=== PATIENT | female | born 1955 | race Caucasian/White ===

== ENCOUNTER → 2016-10-04 | Outpatient (CLI) | payer OTHER ==
--- NOTE | 2016-10-04 12:46 | MAMMOGRAPHY REPORT ---
BILATERAL DIGITAL SCREENING MAMMOGRAM TOMOSYNTHESIS WITH CAD: 10/04/2016 CLINICAL HISTORY: Routine screening. Patient has no complaints. TECHNIQUE: Breast tomosynthesis in addition to standard 2D mammography was performed. Current study was also evaluated with a Computer Aided Detection (CAD) system. COMPARISON: Comparison is made to exams dated: 10/02/2015 mammogram, 04/30/2013 mammogram, and 09/27/20 14 mammogram - [facility]. BREAST COMPOSITION: The tissue of both breasts is heterogeneously dense, which may obscure small ma sses. FINDINGS: No suspicious masses, calcifications, or areas of architectural distortion are noted in e ither breast. There has been no significant interval change compared to prior exams. IMPRESSION: ACR BI-RADS CATEGORY 1: NEGATIVE There is no mammographic evidence of malignancy. A 1 year screening mammogram is recommended. The p atient will receive written notification of the results. Approximately 10% of breast cancers are not detected with mammography. A negative mammographic repor t should not delay biopsy if a clinically suggestive mass is present. Brittnee Troy M.D. ah/:10/04/2016 12:33:35 Hand Crown Pouncer: Wandy Alvarez RT(R)(M), [facility] letter sent: Normal 1/2 BI-RADS Code: ACR BI-RADS Category 1: Negative
== END | disposition home or self-care (01) ==
LOC: C.MAMM 09:19
PROVIDERS: ATTEND Obstetrics & Gynecology
DX: Z12.31 Encounter for screening mammogram for malignant neoplasm of breast (principal)

== ENCOUNTER → 2016-12-17 | Outpatient (CLI) | payer OTHER ==
[2016-12-17 17:36] LABS: BASO % 0.4 %; BASO ABS # 0.03 K/uL (0-0.2); COMPLETE YES; EOS % 0.7 %; HEMATOCRIT 40.6 % (37-47); IG% 0.3 %; LYMPH % 26.1 %; LYMPH ABS # 1.78 K/uL (1.2-3.4); MEAN CORPUSCULAR HGB CONC 34.5 g/dl (32-36); MONO % 7.3 %; NEUT % 65.2 %; PLATELET COUNT 341 K/uL (130-400); RED BLOOD COUNT 4.51 M/uL (4.2-5.4); WHITE BLOOD COUNT 6.82 K/uL (4.8-10.8)
[2016-12-17 17:44] LABS: BLOOD UREA NITROGEN 23 mg/dl (7-18); BUN/CREATININE RATIO 25.6 (10-20); CALCIUM 9.5 mg/dl (8.5-10.1); CARBON DIOXIDE 30 mmol/L (21-32); CHLORIDE 104 mmol/L (98-107); CREATININE 0.91 mg/dl (0.60-1.20); GLUCOSE 101 mg/dl (70-99); POTASSIUM 3.9 mmol/L (3.5-5.1); SODIUM 140 mmol/L (136-145)
== END | disposition home or self-care (01) ==
LOC: C.LABPVFM 16:01
PROVIDERS: ATTEND Nurse Practitioner
DX: R07.89 Other chest pain (principal); R53.83 Other fatigue

== ENCOUNTER → 2017-01-16 | Outpatient (CLI) | payer OTHER ==
[2017-01-16 12:14] LABS: BLOOD UREA NITROGEN 20 mg/dl (7-18); BUN/CREATININE RATIO 22.4 (10-20); CARBON DIOXIDE 30 mmol/L (21-32); CHLORIDE 105 mmol/L (98-107); CHOLESTEROL 182 mg/dl (0-200); CREATININE 0.88 mg/dl (0.60-1.20); GLUCOSE 120 mg/dl (70-99); POTASSIUM 4.1 mmol/L (3.5-5.1); SODIUM 140 mmol/L (136-145); TRIGLYCERIDES 102 mg/dl (0-150); VERY LOW DENSITY LIPOPROT CALC 20 mg/dl
[2017-01-16 12:15] LABS: CALCIUM 9.7 mg/dl (8.5-10.1)
[2017-01-16 12:18] LABS: CHOLESTEROL/HDL RATIO 4.1; HDL CHOLESTEROL 44 mg/dl; LDL CHOLESTEROL CALCULATED 118 mg/dl
[2017-01-16 12:46] LABS: ESTIMATED AVERAGE GLUCOSE 114 mg/dl; HA1C FLAG Normal (Normal)
== END | disposition home or self-care (01) ==
LOC: C.LABPVFM 08:09
PROVIDERS: ATTEND Family Medicine
DX: R73.01 Impaired fasting glucose (principal); I10 Essential (primary) hypertension; E78.5 Hyperlipidemia, unspecified

== ENCOUNTER → 2017-02-13 | Outpatient (CLI) | payer OTHER | END | disposition home or self-care (01) | LOC: C.MAMM 09:20 | PROVIDERS: ATTEND Family Medicine | DX: Z78.0 Asymptomatic menopausal state (principal); M85.88 Other specified disorders of bone density and structure, other site ==

== ENCOUNTER → 2017-10-07 | Outpatient (CLI) | payer OTHER ==
--- NOTE | 2017-10-07 14:28 | MAMMOGRAPHY REPORT ---
BILATERAL DIGITAL SCREENING MAMMOGRAM TOMOSYNTHESIS WITH CAD: 10/07/2017 CLINICAL HISTORY: Routine screening. Patient has no complaints. TECHNIQUE: Breast tomosynthesis in addition to standard 2D mammography was performed. Current study was also evaluated with a Computer Aided Detection (CAD) system. COMPARISON: Comparison is made to exams dated: 10/04/2016 mammogram, 10/02/2015 mammogram, 09/27/2014 ma mmogram, 04/30/2013 mammogram - [facility], 04/11/2009, and 01/15/2007. BREAST COMPOSITION: The tissue of both breasts is heterogeneously dense, which may obscure small mas ses. FINDINGS: The glandular pattern is similar to prior mammograms. No new suspicious mass, architectura l distortion or cluster of microcalcifications is seen. IMPRESSION: ACR BI-RADS CATEGORY 1: NEGATIVE There is no mammographic evidence of malignancy. A 1 year screening mammogram is recommended. The pa tient will receive written notification of the results. Approximately 10% of breast cancers are not detected with mammography. A negative mammographic report should not delay biopsy if a clinically suggestive mass is present. Iram De León M.D. ay/:10/07/2017 12:27:05 Power Line Installer And Repairer: Wandy HOWARD(Nayan)(M), [facility] letter sent: Normal 1/2 BI-RADS Code: ACR BI-RADS Category 1: Negative
== END | disposition home or self-care (01) ==
LOC: C.MAMM 09:15
PROVIDERS: ATTEND Obstetrics & Gynecology
DX: Z12.31 Encounter for screening mammogram for malignant neoplasm of breast (principal)

== ENCOUNTER 2019-11-30 14:26 | Observation (INO) ==
[2019-11-30 15:45] LABS: Basophils # (auto) 0.03 K/uL (0-0.2); Basophils % (auto) 0.5 %; Eosinophils # (auto) 0.02 K/uL (0-0.5); Eosinophils % (auto) 0.3 %; Hemoglobin 14.2 g/dL (12.0-16.0); Immature Granulocytes # (auto) 0.02 K/uL (0.00-0.02); Immature Granulocytes % (auto) 0.3 %; Lymphocytes # (auto) 1.32 K/uL (1.2-3.4); Lymphocytes % (auto) 21.2 %; Mean Corpuscular Hemoglobin 30.9 pg (25-34); Mean Corpuscular Hgb Conc 34.6 g/dL (32-36); Mean Corpuscular Volume 89.1 fL (80-100); Mean Platelet Volume 9.5 fL (7.4-10.4); Monocytes # (auto) 0.35 K/uL (0.11-0.59); Monocytes % (auto) 5.6 %; Neutrophils % (auto) 72.1 %; Platelet Count 385 K/uL (130-400); RDW Coefficient of Variation 13.6 % (11.5-14.5); RDW Standard Deviation 44.4 fL (36.4-46.3); White Blood Count 6.24 K/uL (4.8-10.8)
[2019-11-30 15:54] LABS: Alanine Aminotransferase 31 U/L (12-78); Albumin Level 4.2 gm/dl (3.4-5.0); Aspartate Aminotransferase 19 U/L (15-37); BUN Creatinine Ratio 12.3 (10-20); Blood Urea Nitrogen 12 mg/dl (7-18); Calcium 9.4 mg/dl (8.5-10.1); Carbon Dioxide 25 mmol/L (21-32); Chloride 105 mmol/L (98-107); Creatinine Clr Calc Pharmacy 64.5 ml/min; Est GFR (African American) 70.8; Est GFR (Non-African American) 61.1; Glucose 134 mg/dl (70-99); Magnesium 2.1 mg/dl (1.8-2.4); Potassium 3.6 mmol/L (3.5-5.1); Sodium 137 mmol/L (136-145)
[2019-11-30] MEDS ORDERED: SODIUM CHLORIDE 0.9% 1000ML 1,000 ML IV ONE (15:55)
[2019-11-30 15:56] LABS: INR 1.1 (0.9-1.1); Partial Thromboplastin Ratio 0.9; Partial Thromboplastin Time 25.5 Seconds (21.0-31.0)
[2019-11-30 15:59] LABS: Albumin Globulin Ratio 1.1 (0.9-2); Alkaline Phosphatase 82 U/L (45-117); Bilirubin,Total 0.5 mg/dl (0.2-1); NT Pro B Type Natriuretic Pept 49 pg/ml (0-900); Total Protein 8.2 gm/dl (6.4-8.2); Troponin I < 0.015 ng/ml (0-0.045)
--- NOTE | 2019-11-30 16:00 | Emergency Department Note ---
ED Visit Note I assisted attending Dr. Astudillo in the care of this patient. Please see attending's note for details of the visit. Lory Pat MD Wiring Technician PGY-3 . Resident Activity Tracking Resident Involvement: Resident Care Provided Care Provided: Adult ED
[2019-11-30] MEDS ORDERED: OPTIRAY 320 125ml IV PRN (16:25)
--- NOTE | 2019-11-30 16:34 | CT Scan Report ---
CT angio chest PE protocol CT DOSE: 388.79 mGy.cm HISTORY: Chest pain. Dyspnea. PE TECHNIQUE: Multiaxial CT images of the chest were performed following the intravenous administration of contrast to evaluate the pulmonary arteries. Maximal intensity projection images were also obtaine d. A dose lowering technique was utilized adhering to the principles of ALARA. COMPARISON STUDY: 08/11/2013 FINDINGS: The thoracic aorta is normal in course and caliber. Evaluation of the pulmonary arterial va sculature shows a focal filling defect of the right lower lobe pulmonary arterial supply. This is bes t seen on transaxial image 37. Smaller third order peripheral filling defects of the right lower lobe are present. All remaining pulmonary arterial vasculature enhances appropriately. There is no evidence for a main or midline pulmonary embolus. There is no significant mediastinal or hilar adenopathy. Evaluation of the pulmonary lungs demonstrate the lungs to be clear. There are no focal infiltrative changes. There is no evidence for pneumothorax. IMPRESSION: 1. Study is positive for a pulmonary embolus involving the distal right lower lobe pulmonary artery. 2. No evidence for a main or central pulmonary embolus. 3. Lungs are clear. 4. Unchanged hyperplastic changes left adrenal as compared to the prior study. ACT 112: Negative or not required by law. The above report was generated using voice recognition software. It may contain grammatical, syntax or spelling errors. Electronically signed by: Chase Rodriguez M.D. 11/30/2019 4:33 PM
--- NOTE | 2019-11-30 16:44 | Electrocardiogram Report ---
Test Reason : Blood Pressure : / mmHG Vent. Rate : 112 BPM Atrial Rate : 112 BPM P-R Int : 160 ms QRS Dur : 092 ms QT Int : 322 ms P-R-T Axes : 049 025 051 degrees QTc Int : 439 ms Sinus tachycardia Otherwise normal ECG When compared with ECG of 11-AUG-2013 13:08, No significant change was found Confirmed by Shahid Stout ([id number]) on 11/30/2019 4:44:34 PM Referred By: Confirmed By:Shahid Stout
[2019-11-30 16:53] LABS: Influenza A virus by PCR Neg for Influ A (Neg); Influenza B virus by PCR Neg for Influ B (Neg)
[2019-11-30] MEDS ORDERED: Heparin BOLUS **ED Use Only IV ONE (18:00)
[2019-11-30] MEDS: HEPARIN SODIUM/DEXTROSE 25,000 UNITS/500 ML BAG IV SCH (18:10)
--- NOTE | 2019-11-30 18:25 | History & Physical Report ---
Date of Service November 30, 2019 Assessment & Plan (1) Pulmonary embolus: Admit to PCU on telemetry for observation, Vital signs every 4 hours, Started heparin drip for pulmonary embolus, Switched to Eliquis tomorrow 10 mg p.o. twice daily for 7 days, and continue 5 mg p.o. twice daily for the rest. Hypercoagulable study pending a except for Antithrombin 3 because patient is on heparin drip. Please refer patient to hematology oncology because it is not clear if this embolism is provoked or unprovoked. That would determine length of anticoagulation that patient should take. DVT prophylaxis as above. Full code Present on Admission?: Yes (2) Tachycardia: As discussed above it is a symptom of pulmonary embolism and DVT. Present on Admission?: Yes (3) Prediabetes: Hemoglobin A1c pending. Last year hemoglobin A1c in November was 5.7 meaning that patient is prediabetic. She was advised to lose weight at least 15 pounds which would improve her glycemic control. Patient is not on any kind of glycemic agents at this time. Present on Admission?: Yes (4) Obesity: As discussed above lifestyle changes exercises and diet would significantly help to prevent development of other comorbidities. Present on Admission?: Yes History of Present Illness Chief Complaint: Palpitations, worsening shortness of breath Primary Care Provider: Carmelina Randall MD The patient is a 63 years old female with pre-diabetes and without other significant past medical history who presented with tachycardia for 3 months and shortness of breath. Patient states that 3 months ago she was traveling in the car with her to [place] and she approximately spent around 6 hours in the car. Patient denies use of contraceptive pills any kind of hormones and she is not smoker. Patient denies long travel except for this 1 3 months ago and she denies any family history of blood clotting. Patient is non-smoker. Patient denies fever, chills, chest pain, abdominal pain, frequency, urgency. Labs are reviewed: Sodium 137, potassium 3.6, chloride 105, carbon dioxide 25, anion gap 7, BUN 12, creatinine 0.99 GFR 61.1, BUN 12.3, glucose 134, hemoglobin A1c 5.7 was in November 2018 magnesium 2.1, total bilirubin 0.5, AST 19, ALT 31, alkaline phosphatase 82, troponin 0.015, BNP 49, total protein 8.2, albumin 4.2, globulin 4. Patient also had elevated cholesterol of 232 in November 2018 and borderline LDL. Negative for influenza a and B. DVT of the lower extremity shows nonocclusive thrombus within the mid left popliteal vein. This is likely chronic. CTA of the chest: Study is positive for a pulmonary embolus involving the distal right lower lobe pulmonary artery. No evidence of a main or central pulmonary embolus. Lungs are clear. Unchanged hyperplastic changes left adrenal as compared to the prior study. The decision was made to admit patient to PCU on telemetry for observation for pulmonary embolism and nonocclusive thrombus in her left popliteal vein. Allergies Allergy/AdvReac Type Severity Reaction Status Date / Time No Known Allergies Allergy Unverified 11/30/19 17:50 Home Medications Home Medications Medication Instructions Recorded Confirmed Type metoprolol succinate 25 mg 12.5 mg PO DAILY #30 tab 11/30/19 11/30/19 Rx tablet,extended release 24 hr naproxen sodium [Aleve] 220 mg PO BID PRN 11/30/19 11/30/19 History Past Med/Surg History Medical History Diabetes (Chronic) Tachycardia Surgical History No pertinent past surgical history Family History Grandmother (Maternal) Myocardial infarction Uncle Myocardial infarction Mother Afib Denies family history of Ovarian cancer Prostate cancer Breast cancer Colorectal cancer Social History marital status: Current Living Situation: Spouse current occupational status: retired Feels Safe at Home: Yes Smoking Status: Never smoker Number of Years Since Quit: 9 ; Hx Alcohol Use: No Hx Substance Use: No Dental Care, Regularly: Yes Seatbelt Use: always Sunscreen Use: Yes Review of Systems Review of Systems: All systems reviewed & are unremarkable except as noted in HPI & below Physical Exam Constitutional: WD/WN, vitals as above well developed Eyes: PERRL, conjunctivae normal, anicteric sclerae ENMT: external ear and nose normal, oropharynx normal Neck: trachea midline, no thyromegaly Respiratory: normal respiratory effort, lungs clear to auscultation Cardiovascular: Rate/Rhythm: regular rate, regular rhythm and + tachycardic Heart Sounds: normal S1 and normal S2 Vessels: dorsalis pedis pulses present Gastrointestinal (Abdomen): normal bowel sounds, soft, nontender, no hepatosplenomegaly Musculoskeletal: no cyanosis or clubbing, extremities motor strength 5/5 Skin: no rashes, warm and dry Neurologic: patellar DTR's 2+ bilat, sensation intact Psychiatric: A+Ox3, euthymic affect Lymphatic: no cervical or axillary lymphadenopathy Results & Data Vital Signs (Past 12 Hours) Vital Signs Temp Pulse Resp BP Pulse Ox 11/30/19 16:39 106 H 18 152/98 H 98 11/30/19 16:00 97 H 18 140/83 96 11/30/19 15:30 105 H 12 138/87 97 11/30/19 14:39 37.4 C 132 H 16 157/100 H 98 Code Status & VTE Plan Code Status Full code VTE Prophylaxis Plan VTE Prophylaxis will be ordered: Yes PG Care Time/CCT Total # of Minutes Spent Total Time Spent with Patient: Total time spent is greater than 50% in coordination of care (as documented) at patient's floor/unit and/or counseling patient: Coding Level of Care Code 74835 Initial Inpt Care Lvl 3 Diagnoses Pulmonary embolus I26.99 Acute cor pulmonale presence: unspecified Chronicity: unspecified Pulmonary embolism type: unspecified Tachycardia R00.0 Prediabetes R73.03 Obesity E66.9 (1) Pulmonary embolus Acute cor pulmonale presence: unspecified Chronicity: unspecified Pulmonary embolism type: unspecified Qualified Code(s): I26.99 - Other pulmonary embolism without acute cor pulmonale
[2019-11-30] MEDS ORDERED: MAGNESIUM HYDROXIDE SUSP 30 ML UDC PO PRN (19:39)
[2019-11-30] MEDS ORDERED: ACETAMINOPHEN 325 MG TAB PO PRN (19:39)
[2019-11-30] MEDS ORDERED: ALUMINUM/MAGNESIUM SUSP 30 ML UDC PO PRN (19:39)
--- NOTE | 2019-11-30 20:49 | Emergency Department Note ---
Entered by Carmen Tucker acting as a scribe for History of Present Illness General Chief complaint: Tachycardia Stated complaint: HIGH HEART RT - DR REF Time Seen by Provider: 11/30/19 15:33 Source: patient History of Present Illness Provider complaint: Leg Injury/Pain Onset (ago): day(s) 1 Location: lower extremity and right Maximum Pain Intensity: 0 Relieved By: + none Exacerbated By: + none Associated symptoms: + weakness; no cough and no shortness of breath The patient is a 63 year old female w/ PMHx of diabetes and tachycardia who presents to the ED w/ CC of lower extremity pain beginning yesterday. The patient states that she was sick about 4 weeks ago and treated with Amoxicillin. The patient states that yesterday she began to notice tightness in her right lower extremity and saw her PCP today and an ultrasound revealed a non-inclusive thrombosis in her right lower extremity. The patient states that her symptoms are not relieved nor exacerbated by anything specific. The patient reports experiencing weakness but denies any shortness of breath or cough. Home Medications Home Medications Medication Instructions Recorded Confirmed Type metoprolol succinate 25 mg 12.5 mg PO DAILY #30 tab 11/30/19 11/30/19 Rx tablet,extended release 24 hr naproxen sodium [Aleve] 220 mg PO BID PRN 11/30/19 11/30/19 History Allergies Allergy/AdvReac Type Severity Reaction Status Date / Time No Known Allergies Allergy Unverified 11/30/19 17:50 Past Med/Surg History Medical History Diabetes (Chronic) Tachycardia Surgical History No pertinent past surgical history Family History Grandmother (Maternal) Myocardial infarction Uncle Myocardial infarction Mother Afib Denies family history of Ovarian cancer Prostate cancer Breast cancer Colorectal cancer Social History marital status: Current Living Situation: Spouse current occupational status: retired Feels Safe at Home: Yes Smoking Status: Never smoker Number of Years Since Quit: 9 ; Hx Alcohol Use: No Hx Substance Use: No Dental Care, Regularly: Yes Seatbelt Use: always Sunscreen Use: Yes Review of Systems See HPI for pertinent positives & negatives. and A total of 10 systems reviewed and were otherwise negative Physical Exam Vital Signs Vital Signs - 24 hr 11/30/19 14:39 11/30/19 15:15 11/30/19 15:30 Temperature 37.4 C Temperature Source Oral Pulse Rate 132 H 105 H Pulse Rate from SpO2 Sensor 105 H Respiratory Rate 16 12 Respiratory Effort / Characteristics Non-Labored Spontaneous Respiratory Depth Normal Respiratory Pattern Regular Blood Pressure 157/100 H 138/87 Blood Pressure Mean 119 104 Blood Pressure Position Sitting Pulse Oximetry 98 97 Oxygen Delivery Method Room Air Room Air Room Air Sepsis Recent Fever Within 48 Hours No Sepsis New/Unexplained Change in Mental Status No Sepsis Action Taken by Nursing No Action Required 11/30/19 16:00 11/30/19 16:39 11/30/19 17:00 Temperature Temperature Source Pulse Rate 97 H 106 H 97 H Pulse Rate from SpO2 Sensor 98 H 107 H 97 H Respiratory Rate 18 18 11 L Respiratory Effort / Characteristics Respiratory Depth Respiratory Pattern Blood Pressure 140/83 152/98 H 137/86 Blood Pressure Mean 95 119 98 Blood Pressure Position Pulse Oximetry 96 98 99 Oxygen Delivery Method Room Air Room Air Room Air Sepsis Recent Fever Within 48 Hours Sepsis New/Unexplained Change in Mental Status Sepsis Action Taken by Nursing 11/30/19 17:30 11/30/19 18:00 Temperature Temperature Source Pulse Rate 108 H 107 H Pulse Rate from SpO2 Sensor 108 H 108 H Respiratory Rate 18 20 Respiratory Effort / Characteristics Respiratory Depth Respiratory Pattern Blood Pressure 153/92 H 151/104 H Blood Pressure Mean 105 130 Blood Pressure Position Pulse Oximetry 98 96 Oxygen Delivery Method Room Air Room Air Sepsis Recent Fever Within 48 Hours Sepsis New/Unexplained Change in Mental Status Sepsis Action Taken by Nursing GENERAL: Well appearing, well nourished, NAD, non-toxic, wearing glasses. EYE EXAM: Normal conjunctiva. PERRL, no anisocoria and EOM's grossly intact w/o pain. OROPHARYNX: Moist mucous membranes. Grossly normal dentition. NECK: Supple, no nuchal rigidity, no adenopathy, non-tender. No signs of meningismus. LUNGS: Clear to auscultation. Normal chest wall mechanics. HEART: Tachycardic rate and regular rhythm, no MRG. ABDOMEN: Abdomen soft, non-tender, normo-active bowel sounds, no masses, no rebound or guarding. BACK: No CVA TTP. SKIN: No rashes and no bruising. UPPER EXTREMITIES: Upper extremities are grossly normal. LOWER EXTREMITIES: No pitting edema. No calf pain. Negative Geovanna's sign. NEURO EXAM: A&O x3, cranial nerves II-XII grossly intact, normal speech, moves all 4 extremities on command w/o issue. Course Course 1534: Past medical records reviewed. The patient was seen and evaluated by the Resident Physician in room A12B at this time. History and physical were discussed with me. 1634: Physical exam performed by me. 1753: I spoke with Dr. Gregg- Hospitalist about the patient's case and she will accept the patient for further evaluation. Administered Medications Heparin Sodium/Dextrose (Heparin Sodium/Dextrose) 25,000 units in 500 mls @ 25 mls/hr IV .Q20H [facility]; Protocol Stop: 12/30/19 17:29 Last Admin: 11/30/19 18:10 Dose: 1,250 units/hr, 25 mls/hr Documented by: [id number] Cosigned by: [id number] Discontinued Medications Heparin Sodium (Porcine) (Heparin Iv Bolus) 6,000 units IV ONE ONE Stop: 11/30/19 18:01 Last Admin: 11/30/19 18:10 Dose: 6,000 units Documented by: [id number] Cosigned by: [id number] Heparin Sodium/Dextrose () 1 ea IV NOW [facility]; Protocol Stop: 11/30/19 17:21 Last Admin: 11/30/19 18:13 Dose: Not Given Documented by: [id number] Sodium Chloride (Nss 1000ml) 1,000 mls @ 999 mls/hr IV .Q1H1M ONE Stop: 11/30/19 16:55 Last Infusion: 11/30/19 17:35 Dose: 0 mls/hr Documented by: [id number] Admin: 11/30/19 16:10 Dose: 999 mls/hr Documented by: [id number] Ioversol (Optiray 320 125ml) 83 ml IV ONCE PRN PRN Reason: Interaction Checking Stop: 12/04/19 16:24 Last Admin: 11/30/19 16:25 Dose: 83 ml Documented by: [id number] Critical Care Time Critical Care Time: Yes Total Critical Care Time: 52 I have personally spent 52 minutes of critical care time in direct management of this patient. This includes bedside care, interpretation of diagnostic studies, and testing, discussion with consultants, patient, and family members, and other require inpatient management activities. This 52 minutes is in excess of all separately billable procedures. Medical Decision Making Differential Diagnosis Differential Diagnosis includes but is not limited to dehydration, stroke, anemia, hypoglycemia, hyponatremia, hypernatremia, urinary tract infection, pneumonia, bronchitis, sepsis, gastroenteritis, additional abdominal pathology, metabolic abnormalities and infections. Medical Records Attestation: I reviewed the patient's medical records. Home Medications Current Medication List: was personally reviewed by me Laboratory Data Attestation: I reviewed the patient's lab results. Result diagrams: 11/30/19 15:15 11/30/19 15:15 Lab Results 11/30/19 11/30/19 11/30/19 Range/Units 15:15 15:15 15:15 WBC 6.24 (4.8-10.8) K/uL RBC 4.60 (4.2-5.4) M/uL Hgb 14.2 (12.0-16.0) g/dL Hct 41.0 (37-47) % MCV 89.1 (80-100) fL MCH 30.9 (25-34) pg MCHC 34.6 (32-36) g/dL RDW Std Deviation 44.4 (36.4-46.3) fL RDW Coeff of Forrest 13.6 (11.5-14.5) % Plt Count 385 (130-400) K/uL MPV 9.5 (7.4-10.4) fL Immature Gran % (Auto) 0.3 % Neut % (Auto) 72.1 % Lymph % (Auto) 21.2 % Major % (Auto) 5.6 % Eos % (Auto) 0.3 % Baso % (Auto) 0.5 % Immature Gran # (Auto) 0.02 (0.00-0.02) K/uL Neut # (Auto) 4.50 (1.4-6.5) K/uL Lymph # (Auto) 1.32 (1.2-3.4) K/uL Major # (Auto) 0.35 (0.11-0.59) K/uL Eos # (Auto) 0.02 (0-0.5) K/uL Baso # (Auto) 0.03 (0-0.2) K/uL PT 11.0 (9.0-12.0) Seconds INR 1.1 (0.9-1.1) APTT 25.5 (21.0-31.0) Seconds PTT Ratio 0.9 Sodium 137 (136-145) mmol/L Potassium 3.6 (3.5-5.1) mmol/L Chloride 105 (98-107) mmol/L Carbon Dioxide 25 (21-32) mmol/L Anion Gap 7.0 (3-11) BUN 12 (7-18) mg/dl Creatinine 0.99 (0.6-1.2) mg/dl Est Cr Clr Drug Dosing 64.5 ml/min Est GFR ( Amer) 70.8 Est GFR (Non-Af Amer) 61.1 BUN/Creatinine Ratio 12.3 (10-20) Glucose 134 H (70-99) mg/dl Calcium 9.4 (8.5-10.1) mg/dl Magnesium 2.1 (1.8-2.4) mg/dl Total Bilirubin 0.5 (0.2-1) mg/dl AST 19 (15-37) U/L ALT 31 (12-78) U/L Alkaline Phosphatase 82 (45-117) U/L Troponin I < 0.015 (0-0.045) ng/ml NT-Pro-B Natriuret Pep 49 (0-900) pg/ml Total Protein 8.2 (6.4-8.2) gm/dl Albumin 4.2 (3.4-5.0) gm/dl Globulin 4.0 (2.5-4.0) gm/dl Albumin/Globulin Ratio 1.1 (0.9-2) TSH (0.300-4.500) uIu/ml Influenza Type A (PCR) (Neg) Influenza Type B (PCR) (Neg) 11/30/19 11/30/19 Range/Units 15:15 16:05 WBC (4.8-10.8) K/uL RBC (4.2-5.4) M/uL Hgb (12.0-16.0) g/dL Hct (37-47) % MCV (80-100) fL MCH (25-34) pg MCHC (32-36) g/dL RDW Std Deviation (36.4-46.3) fL RDW Coeff of Forrest (11.5-14.5) % Plt Count (130-400) K/uL MPV (7.4-10.4) fL Immature Gran % (Auto) % Neut % (Auto) % Lymph % (Auto) % Major % (Auto) % Eos % (Auto) % Baso % (Auto) % Immature Gran # (Auto) (0.00-0.02) K/uL Neut # (Auto) (1.4-6.5) K/uL Lymph # (Auto) (1.2-3.4) K/uL Major # (Auto) (0.11-0.59) K/uL Eos # (Auto) (0-0.5) K/uL Baso # (Auto) (0-0.2) K/uL PT (9.0-12.0) Seconds INR (0.9-1.1) APTT (21.0-31.0) Seconds PTT Ratio Sodium (136-145) mmol/L Potassium (3.5-5.1) mmol/L Chloride (98-107) mmol/L Carbon Dioxide (21-32) mmol/L Anion Gap (3-11) BUN (7-18) mg/dl Creatinine (0.6-1.2) mg/dl Est Cr Clr Drug Dosing ml/min Est GFR ( Amer) Est GFR (Non-Af Amer) BUN/Creatinine Ratio (10-20) Glucose (70-99) mg/dl Calcium (8.5-10.1) mg/dl Magnesium (1.8-2.4) mg/dl Total Bilirubin (0.2-1) mg/dl AST (15-37) U/L ALT (12-78) U/L Alkaline Phosphatase (45-117) U/L Troponin I (0-0.045) ng/ml NT-Pro-B Natriuret Pep (0-900) pg/ml Total Protein (6.4-8.2) gm/dl Albumin (3.4-5.0) gm/dl Globulin (2.5-4.0) gm/dl Albumin/Globulin Ratio (0.9-2) TSH 1.540 (0.300-4.500) uIu/ml Influenza Type A (PCR) Neg for Influ A (Neg) Influenza Type B (PCR) Neg for Influ B (Neg) Imaging Data Radiologist's Impression: Radiology results as stated below per my review and the radiologist's interpretation: RIGHT LOWER EXTREMITY VENOUS DOPPLER HISTORY: Right THIGH PAIN, R/O DVT COMPARISON STUDY: None. FINDINGS: There is normal compressibility, flow, and augmentation right common femoral and superficial femoral veins. There is nonocclusive thrombus seen wit hin the mid left popliteal vein. This is likely chronic. The anterior tibial, posterior tibial, and peroneal veins appear patent. IMPRESSION: Nonocclusive thrombus within the mid left popliteal vein. This is likely chronic. ACT 112: Negative or not required by law. Electronically signed by: Paulie Huff M.D. 11/30/2019 1:[address] angio chest PE protocol CT DOSE: 388.79 mGy.cm HISTORY: Chest pain. Dyspnea. PE TECHNIQUE: Multiaxial CT images of the chest were performed following the intravenous administration of contrast to evaluate the pulmonary arteries. Maximal intensity projection images were also obtained. A dose lowering techniq ue was utilized adhering to the principles of ALARA. COMPARISON STUDY: 08/11/2013 FINDINGS: The thoracic aorta is normal in course and caliber. Evaluation of the pulmonary arterial vasculature shows a focal filling defect of the right lower lobe pulmonary arterial supply. This is best seen on transaxial image 37. Smaller third order peripheral filling defects of the right lower lobe are present. All remaining pulmonary arterial vasculature enhances appropriately. There is no evidence for a main or midline pulmonary embolus. There is no significant mediastinal or hilar adenopathy. Evaluation of the pulmonary lungs demonstrate the lungs to be clear. There are no focal infiltrative changes. There is no evidence for pneumothorax. IMPRESSION: 1. Study is positive for a pulmonary embolus involving the distal right lower lobe pulmonary artery. 2. No evidence for a main or central pulmonary embolus. 3. Lungs are clear. 4. Unchanged hyperplastic changes left adrenal as compared to the prior study. ACT 112: Negative or not required by law. The above report was generated using voice recognition software. It may contain grammatical, syntax or spelling errors. Electronically signed by: Chase Rodrigeuz M.D. 11/30/2019 4:33 PM ECG Data Attestation: I personally reviewed and interpreted this ECG as follows: Indication: + tachycardia Rate (beats per minute): 112 Rhythm: + sinus tachycardia ECG [place]: + Normal ECG ST segments: no ST depression, no ST elevation and no T-wave inversions ECG Findings: + Other (Normal intervals) Blood Pressure Blood Pressure Findings: Elevated blood pressure Blood Pressure Disposition: further management by hospitalist ELMER Mcqueen The patient is a 63 year old female w/ PMHx of diabetes and tachycardia who presents to the ED w/ CC of lower extremity pain beginning yesterday. 1536: Continuous Cardiac Monitoring: An order was placed for continuous cardiac monitoring. The monitor shows a rate of 112 with sinus tachycardia. Patient was seen and evaluated at the bedside after being seen and evaluated by the resident physician. The patient was referred here due to persistent tachycardia and associated DVT thrombus. The patient does complain of some w eakness and fatigue. The patient did have an outpatient DVT ultrasound which showed nonocclusive thrombus in the right lower extremity. The patient has complained of this fatigability and persistent tachycardia without any other explanation as the patient has not had changes in caffeine there are no stimulants or supplements. Patient denies any thyroid history. The patient furthermore is on metoprolol. The patient did have blood work completed which showed a normal white count H&H. Patient's kidney function is unremarkable. Troponin is nondetectable. Flu negative. CT angiography of the chest does show right lower lobe pulmonary artery PE. Given this and the patient's easy fatigability and associated tachycardia I believe she would benefit from inpatient treatment. Heparin was ordered and the patient was admitted to the medicine service. Impression & Plan Pulmonary embolus, Tachycardia, Weakness Discharge Plan Visit Data *Final* Discharge Date/Time: 11/30/19 19:12 Chief Complaint: Tachycardia Stated Complaint: HIGH HEART RT - DR REF ED Provider: Devin Astudillo ED Midlevel Provider: Lory Pat Discharge Problem: Pulmonary embolus, Tachycardia, Weakness Patient Disposition: Admitted As Inpatient Discharge Instructions Interventions: ED Discharge Assessment Last Done: 11/30/19 19:12 Discharge Problem: Pulmonary embolus Qualifiers: Pulmonary embolism type: unspecified Chronicity: unspecified Acute cor pulmonale presence: unspecified Qualified Code(s): I26.99 - Other pulmonary embolism without acute cor pulmonale The scribe's documentation has been prepared under my direction and personally reviewed by me in its entirety. I confirm that the note above accurately reflects all work, treatment, procedures, and medical decision making performed by me.
[2019-12-01 00:53] LABS: Partial Thromboplastin Ratio 3.7
[2019-12-01 02:37] LABS: Partial Thromboplastin Ratio 2.1
[2019-12-01 02:43] LABS: Partial Thromboplastin Time 56.4 Seconds (21.0-31.0)
[2019-12-01 06:04] LABS: Basophils # (auto) 0.03 K/uL (0-0.2); Basophils % (auto) 0.6 %; Eosinophils # (auto) 0.11 K/uL (0-0.5); Eosinophils % (auto) 2.1 %; Hematocrit (blood only) 40.1 % (37-47); Hemoglobin 13.6 g/dL (12.0-16.0); Immature Granulocytes # (auto) 0.02 K/uL (0.00-0.02); Immature Granulocytes % (auto) 0.4 %; Lymphocytes # (auto) 2.23 K/uL (1.2-3.4); Lymphocytes % (auto) 41.7 %; Mean Corpuscular Hemoglobin 30.7 pg (25-34); Mean Corpuscular Hgb Conc 33.9 g/dL (32-36); Mean Corpuscular Volume 90.5 fL (80-100); Mean Platelet Volume 9.2 fL (7.4-10.4); Monocytes # (auto) 0.29 K/uL (0.11-0.59); Monocytes % (auto) 5.4 %; Neutrophils # (auto) 2.67 K/uL (1.4-6.5); Neutrophils % (auto) 49.8 %; Platelet Count 335 K/uL (130-400); RDW Standard Deviation 46.2 fL (36.4-46.3); Red Blood Count 4.43 M/uL (4.2-5.4); White Blood Count 5.35 K/uL (4.8-10.8)
[2019-12-01 06:21] LABS: Estimated Average Glucose 126 mg/dl
[2019-12-01 06:43] LABS: Albumin Level 3.7 gm/dl (3.4-5.0); BUN Creatinine Ratio 12.4 (10-20); Calcium 8.9 mg/dl (8.5-10.1); Creatinine Clr Calc Pharmacy 69.2 ml/min; Est GFR (African American) 77.3; Est GFR (Non-African American) 66.7; Potassium 3.8 mmol/L (3.5-5.1)
[2019-12-01 06:46] LABS: Bilirubin,Total 0.6 mg/dl (0.2-1); Globulin 3.8 gm/dl (2.5-4.0); Total Protein 7.5 gm/dl (6.4-8.2)
[2019-12-01 07:08] LABS: INR 1.1 (0.9-1.1); Partial Thromboplastin Ratio 1.9; Prothrombin Time 11.4 Seconds (9.0-12.0)
[2019-12-01 07:10] LABS: Partial Thromboplastin Time 51.7 Seconds (21.0-31.0)
[2019-12-01] MEDS ORDERED: METOPROLOL SUCC 25MG EXT REL TAB PO SCH (09:00)
[2019-12-01 09:29] LABS: Partial Thromboplastin Ratio 2.2
[2019-12-01 09:32] LABS: Partial Thromboplastin Time 58.3 Seconds (21.0-31.0)
[2019-12-01] MEDS: HEPARIN SODIUM/DEXTROSE 25,000 UNITS/500 ML BAG IV SCH (15:15)
[2019-12-01 15:25] VITALS: BP 102/67; TEMP 98.4; O2SAT 93
[2019-12-01] MEDS ORDERED: APIXABAN 5 MG TABLET PO ONE (17:00)
--- NOTE | 2019-12-01 17:32 | Discharge Summary ---
Date of Service December 01, 2019 Admission HPI Per Admitting Provider The patient is a 63 years old female with pre-diabetes and without other significant past medical history who presented with tachycardia for 3 months and shortness of breath. Patient states that 3 months ago she was traveling in the car with her to [place] and she approximately spent around 6 hours in the car. Patient denies use of contraceptive pills any kind of hormones and she is not smoker. Patient denies long travel except for this 1 3 months ago and she denies any family history of blood clotting. Patient is non-smoker. Patient denies fever, chills, chest pain, abdominal pain, frequency, urgency. Labs are reviewed: Sodium 137, potassium 3.6, chloride 105, carbon dioxide 25, anion gap 7, BUN 12, creatinine 0.99 GFR 61.1, BUN 12.3, glucose 134, hemoglobin A1c 5.7 was in November 2018 magnesium 2.1, total bilirubin 0.5, AST 19, ALT 31, alkaline phosphatase 82, troponin 0.015, BNP 49, total protein 8.2, albumin 4.2, globulin 4. Patient also had elevated cholesterol of 232 in November 2018 and borderline LDL. Negative for influenza a and B. DVT of the lower extremity shows nonocclusive thrombus within the mid left popliteal vein. This is likely chronic. CTA of the chest: Study is positive for a pulmonary embolus involving the distal right lower lobe pulmonary artery. No evidence of a main or central pulmonary embolus. Lungs are clear. Unchanged hyperplastic changes left adrenal as compared to the prior study. The decision was made to admit patient to PCU on telemetry for observation for pulmonary embolism and nonocclusive thrombus in her left popliteal vein. Admission Exam Per Admitting Provider Constitutional: WD/WN, vitals as above well developed Eyes: PERRL, conjunctivae normal, anicteric sclerae ENMT: external ear and nose normal, oropharynx normal Neck: trachea midline, no thyromegaly Respiratory: normal respiratory effort, lungs clear to auscultation Cardiovascular: Rate/Rhythm: regular rate, regular rhythm and + tachycardic Heart Sounds: normal S1 and normal S2 Vessels: dorsalis pedis pulses present Gastrointestinal (Abdomen): normal bowel sounds, soft, nontender, no hepato splenomegaly Musculoskeletal: no cyanosis or clubbing, extremities motor strength 5/5 Skin: no rashes, warm and dry Neurologic: patellar DTR's 2+ bilat, sensation intact Psychiatric: A+Ox3, euthymic affect Principal Diagnosis Pulmonary embolism (PE) - distal right lower lobe pulmonary artery Deep vein thrombosis (DVT) Discharge Exam Constitutional WD/WN, vitals as above ENMT external ear and nose normal, oropharynx normal Neck trachea midline, no thyromegaly Respiratory normal respiratory effort, lungs clear to auscultation Cardiovascular Rate/Rhythm: regular rhythm and + tachycardic Heart Sounds: normal S1 and normal S2; no murmur Gastrointestinal (Abdomen) normal bowel sounds, soft, nontender, no hepatosplenomegaly Musculoskeletal no cyanosis or clubbing, extremities motor strength 5/5 Skin no rashes, warm and dry Psychiatric A+Ox3, euthymic affect Discharge Data Allergies Allergy/AdvReac Type Severity Reaction Status Date / Time No Known Allergies Allergy Unverified 12/03/19 09:33 Consultations 11/30/19 17:21 ED Decision to Admit Stat Ordered Studies 11/30/19 15:35 CT angio chest PE protocol Stat Hospital Course (1) Pulmonary embolus: Mallory Davis is a 63 year old observed overnight at [facility] from November 29 to 2019 due to fatigue, elevated heart rate and outpatient DVT. CT for PE confirmed distal right lower lobe pulmonary artery embolism. She was initially treated with IV heparin and transitioned to apixaban (Eliquis). Recommend a total treatment of 6 months given no definitive provoking factor and strong family history. Hypercoagulable workup pending at time of discharge. Consider referral to hematology if provoking factors unclear after 6 months of treatment and initial hypercoagulable workup normal. Incidentally she was noted to have pre-diabetes. Recommended following up with her PCP regarding management of this with diet and exercise. (2) Tachycardia: (3) Prediabetes: (4) Obesity: Total Time Total Time Spent Total Time Spent (In Minutes): 25 Total Time Includes: Examination of the Patient, Discharge Planning and Medication Reconciliation Discharge Plan Discharge Items Patient Disposition: Home - Self-Care Reason For Visit: Fatigue, tachycardia, DVT Discharge Diagnosis: Pulmonary embolism (PE) - distal right lower lobe pulmonary artery Deep vein thrombosis (DVT) - Right mid left popliteal vein, likely chronic Activity: Resume your previous activity Non-emergency contact: Primary Care Provider Call non-emergency contact if: you have any medication questions and your symptoms worsen Follow-up/Referrals: Carmelina Randall MD [Primary Care Provider] - 12/03/19 9:30 am Diet: Regular Addtl Attending Provider Instructions: You were observed overnight at [facility] from November 29 to 2019 due to fatigue, elevated heart rate and outpatient DVT. CT for PE confirmed distal right lower lobe pulmonary artery embolism. You were initially treated with IV heparin and transitioned to apixaban (Eliquis). Recommend a total treatment of 6 months given no definitive provoking factor and strong family history. Only first month of treatment has been prescribed; future prescriptions should be obtained through your primary care physician. Please follow up with your primary care physician for results of your hypercoagulable workup done on admission. Consider referral to hematology if provoking factors unclear after 6 months of treatment and initial hypercoagulable workup normal. Incidentally you were noted to have pre-diabetes. Recommend following up with your primary provider regarding management of this with diet and exercise. Kind regards, Dr Carmine Sanon Pending Studies at Discharge: Yes (hypercoagulable workup) Stand-Alone Forms: My [facility], Smoking Cessation Medications and DC Order Prescriptions: New apixaban 5 mg (74 tabs) tablets,dose pack See Rx Instructions .ROUTE .COMPLEX Qty: 74 RF: 0 Discontinued metoprolol succinate 25 mg tablet extended release 24 hr 12.5 mg PO DAILY Qty: 30 RF: 2 naproxen sodium [Aleve] 220 mg Tablet 220 mg PO BID PRN (Reason: Pain) RF: 0 Discharge Orders: Discharge Order (Routine); Ordered 12/01/19 Ordered By: Carmine Camejo/Other Patient Handouts: Prediabetes, Embolism Pulmonary Dc, A1C Admission Data Admit Date/Time: 11/30/19 18:24 Attending Provider: Carmine Sanon Admit Provider: Gamal Gregg Primary Care Provider: Carmelina Randall Other Providers: Gamal Gregg Other Interventions: Discharge Summary Assessment (RN) Last Done: 12/01/19 18:28 DC Date/Time DO NOT enter until pt leaves facility: 12/01/19 18:46 Coding Level of Care Code 01211 OBS Care - Discharge Diagnoses Pulmonary embolus I26.99 Acute cor pulmonale presence: unspecified Chronicity: unspecified Pulmonary embolism type: unspecified Tachycardia R00.0 Prediabetes R73.03 Obesity E66.9
[2019-12-01 18:33] VITALS: PULSE 98
[2019-12-02 23:00] LABS: PTT LA Screen 86 sec (<=40); Protein S Functional(Activity) 95 % (60-140)
[2019-12-03 08:30] LABS: Lupus Hex Phase (Rflxdonotord) Negative (Negative)
[2019-12-05 15:20] LABS: Anti Cardiolipin Ab IgG <14 GPL; Anti Cardiolipin Ab IgM 57 MPL; Anti-Cardiolipin Ab IgA <11 APL; B2 Glycoprotein IgA <9 SAU (<=20); B2 Glycoprotein IgG <9 SGU (<=20); B2 Glycoprotein IgM 46 SMU (<=20)
== END 2019-12-01 18:46 | disposition home or self-care (01) ==
LOC: 2S 14:26 → ED 14:26 → SUATTDRO 18:24 → 2S 19:12